=== PATIENT | male | born 1990 | race African-American/Black ===

== ENCOUNTER 2018-10-25 08:16 | Emergency (ER) | payer OTHER ==
[~2018-10-25] VITALS: Ht 170.2 cm; Wt 72.6 kg
[2018-10-25] MEDS ORDERED: INDOMETHACIN 2525 MG PO (10:28)
[2018-10-25] MEDS ORDERED: SENNA-DOCUSATE1 EAC1 PO (10:28)
[2018-10-25] MEDS ORDERED: NORCO 5-325 TA1 EACH PO (10:28)
[2018-10-25 10:30] VITALS: BP 152/71
== END 2018-10-25 11:00 | disposition home or self-care (01) ==
LOC: ER 08:16
DX: M10.072 Idiopathic gout, left ankle and foot (principal)